=== PATIENT | male | born 1990 | race Native Hawaiian/Other Pacific Islander ===

== ENCOUNTER 2018-10-22 17:10 | Emergency (ER) | payer OTHER ==
[~2018-10-22] VITALS: Ht 167.6 cm; Wt 59.0 kg
[2018-10-22 17:43] LABS: PLATELET COUNT 259 K/uL (142-355)
[2018-10-22 17:58] LABS: POTASSIUM 3.7 mmol/L (3.6-5.2)
[2018-10-22 19:14] VITALS: BP 117/62; TEMP 99.5
== END 2018-10-22 19:15 | disposition home or self-care (01) ==
LOC: ED 17:10
PROVIDERS: Family Medicine
DX: K52.9 Noninfective gastroenteritis and colitis, unspecified (principal); R50.9 Fever, unspecified; D72.828 Other elevated white blood cell count
CPT/HCPCS: 36415; 80053; 82150; 83605; 83690; 85027; 96360; 96372; 96375; 99284; J0500; J2405

== ENCOUNTER 2020-01-16 13:45 | Outpatient (CLI) | payer OTHER | END 2020-01-16 19:16 | disposition home or self-care (01) | LOC: RAD 13:45 | DX: S69.91XA Unspecified injury of right wrist, hand and finger(s), initial encounter (principal) ==